=== PATIENT | female | born 1980 | race Caucasian/White ===

== ENCOUNTER 2020-07-09 08:46 | Emergency (ER) | payer OTHER ==
[~2020-07-09] VITALS: Ht 160 cm; Wt 94.8 kg
[2020-07-09 08:54] VITALS: BP 133/73
--- NOTE | 2020-07-09 09:00 | NUR ---
AMBULATED TO BED 8
--- NOTE | 2020-07-09 09:17 | NUR ---
39 Y/O FEMALE C/O ABDOMINAL PAIN X 1 MONTH. PAIN 8/10, "FEELS LIKE A PUNCH". PT STATES PAIN ONLY OCCURS AT NIGHT AND WHEN SHE IS WALKING FOR MORE THAN 15 MINUTES. NORMOACTIVE BOWEL SOUNDS HEARD THROUGHOUT. STATES BLOATING, DENIES NAUSEA/VOMITING/DIARRHEA. NO MEDICATIONS TAKEN TO ADDRESS PAIN. AO4, BREATHING EVEN AND UNLABORED, SKIN WARM AND DRY. BED IN LOWEST POSITION, LOCKED, X1 SIDERAIL UP. PMH - DENIED NKA
[2020-07-09 09:43] LABS: BASOPHILS # (AUTO) 0.1 K/uL (0.00-0.22); BASOPHILS % (AUTO) 0.6 % (0.0-2.0); EOSINOPHILS # (AUTO) 0.4 K/uL (0-0.4); EOSINOPHILS % (AUTO) 4.8 % (0.0-4.0); HEMATOCRIT 35.4 % (36-48); HEMOGLOBIN 12.1 g/dL (12.0-16.0); LYMPHOCYTES # (AUTO) 1.9 K/uL (2.5-16.5); LYMPHOCYTES % (AUTO) 21.6 % (20.5-51.1); MEAN CORPUSCULAR HEMOGLOBIN 31 pg (27-31); MEAN CORPUSCULAR HGB CONC 34 g/dL (33-37); MEAN CORPUSCULAR VOLUME 91.4 fL (80-94); MONOCYTES # (AUTO) 0.7 K/uL (0.8-1.0); MONOCYTES % (AUTO) 7.3 % (1.7-9.3); NEUTROPHILS # (AUTO) 5.9 K/uL (1.8-7.7); NEUTROPHILS % (AUTO) 65.7 % (42.2-75.2); PLATELET COUNT (AUTO) 195 K/uL (140-450); RED BLOOD CELL COUNT(AUTO) 3.87 MIL/uL (4.20-5.40)
--- NOTE | 2020-07-09 09:49 | NUR ---
US AT BEDSIDE
[2020-07-09 10:01] LABS: ALBUMIN 2.7 g/dL (3.4-5.0); ANION GAP 12.8 (8-16); CARBON DIOXIDE 23.7 mmol/L (21-32); CREATININE 0.5 mg/dL (0.6-1.3); POTASSIUM 3.5 mmol/L (3.5-5.1); TOTAL BILIRUBIN 0.3 mg/dL (0.0-1.0)
[2020-07-09 11:14] VITALS: BP 133/73
--- NOTE | 2020-07-09 11:15 | NUR ---
Patient discharged with v/s stable. Written and verbal after care instructions ABOUT ABDOMINAL PAIN DURING given and explained. Patient verbalized understanding. Ambulatory with steady gait. All questions addressed prior to discharge. Advised to follow up with PMD.
== END 2020-07-09 11:15 | disposition home or self-care (01) ==
LOC: MED 08:46
DX: O26.891 Other specified pregnancy related conditions, first trimester (principal); R10.11 Right upper quadrant pain; Z3A.01 Less than 8 weeks gestation of pregnancy
CPT/HCPCS: 36415; 76705; 76805; 80053; 81002; 81025; 83690; 84702; 85025; 99285